=== PATIENT | male | born 1995 | race Two or more races ===

== ENCOUNTER → 2018-05-04 | Emergency (ER) | payer OTHER ==
[~2018-05-04] VITALS: Ht 172.7 cm; Wt 77.1 kg
== END | disposition home or self-care (01) ==
LOC: ER 07:04
DX: K52.9 Noninfective gastroenteritis and colitis, unspecified (principal); K29.70 Gastritis, unspecified, without bleeding

== ENCOUNTER 2018-10-30 23:56 | Emergency (ER) | payer OTHER ==
[~2018-10-30] VITALS: Ht 172.7 cm; Wt 79.4 kg
[2018-10-31] MEDS ORDERED: KETO10TA2 PO (04:16)
[2018-10-31] MEDS ORDERED: CEFADROXIL500 MG PO (04:16)
== END 2018-10-31 04:29 ==
LOC: ER 23:56
DX: S51.812A Laceration without foreign body of left forearm, initial encounter (principal); W25.XXXA Contact with sharp glass, initial encounter; S09.8XXA Other specified injuries of head, initial encounter; Y93.89 Activity, other specified; Y92.89 Other specified places as the place of occurrence of the external cause; Y99.8 Other external cause status

== ENCOUNTER 2019-10-13 10:10 | Emergency (ER) | payer OTHER ==
[~2019-10-13] VITALS: Ht 172.7 cm; Wt 81.6 kg
[~2019-10-13 10:10] MED LIST: CEFADROXIL500 MG PO; KETO10TA2 PO
== END 2019-10-13 11:28 | disposition home or self-care (01) ==
LOC: ER 10:10
DX: L03.116 Cellulitis of left lower limb (principal)